=== PATIENT | female | born 1990 | race American Indian/Alaskan Native ===

== ENCOUNTER 2019-01-06 14:05 | Emergency (ER) | payer SELFPAY ==
[2019-01-06 16:19] LABS: HCG Qualitative,Urine Negative (Negative)
[2019-01-06 16:20] LABS: Bacteria,Urine 1+ /HPF (Negative); Bilirubin,Urine NEG (Negative); Blood,Urine NEG (Negative); Color,Urine Yellow (Yellow); Mucus,Urine 3+ /HPF; Protein,Urine <15 mg/dL mg/dL (Negative); Urobilinogen,Urine < 2.0 mg/dL (<2.0)
--- NOTE | 2019-01-06 16:23 | Emergency Department Report ---
ED Female HPI - General Chief complaint: Abdominal Pain Stated complaint: UTI SYMPTOMS Time Seen by Provider: 01/06/19 15:57 Source: patient Mode of arrival: Ambulatory Limitations: No Limitations - History of Present Illness Initial comments: 28-year-old -[place] female presents to the emergency room complaining of pain with urination and occasional pelvic and back pain. Patient does admit that she went [facility] was given a prescription for Macrobid but had lost it. She denies any fever or chills no nausea no vomiting. MD Complaint: dysuria Onset/Timin -: week(s) Location: suprapubic Radiation: other (back) Severity: mild Quality: aching Consistency: intermittent Improves with: none Worsens with: urination Are you Now?: No Last Menstrual Period: 12/19/18 EDC: 09/25/19 Associated Symptoms: denies other symptoms - Related Data Sexually active: Yes Previous Rx's Medication Instructions Recorded Last Taken Type Nitrofurantoin [place]/M-Cryst 100 mg PO Q12HR #14 capsule 01/06/19 Unknown Rx [Macrobid CAP] Phenazopyridine [Pyridium] 100 mg PO TID #6 tab 01/06/19 Unknown Rx Allergies Allergy/AdvReac Type Severity Reaction Status Date / Time No Known Allergies Allergy Verified 01/06/19 14:37 ED Review of Systems ROS: Stated complaint: UTI SYMPTOMS Other details as noted in HPI Comment: All other systems reviewed and negative ED Past Medical Hx - Social History Smoking Status: Never Smoker Substance Use Type: Alcohol - Medications Home Medications: Home Medications Medication Instructions Recorded Confirmed Last Taken Type Nitrofurantoin [place]/M-Cryst 100 mg PO Q12HR #14 capsule 01/06/19 Unknown Rx [Macrobid CAP] Phenazopyridine [Pyridium] 100 mg PO TID #6 tab 01/06/19 Unknown Rx ED Physical Exam - General Limitations: No Limitations General appearance: alert, in no apparent distress - Head Head exam: Present: atraumatic, normocephalic - Eye Eye exam: Present: normal appearance - ENT ENT exam: Present: mucous membranes moist - Neurological Exam Neurological exam: Present: alert, oriented X3, normal gait - Psychiatric Psychiatric exam: Present: normal affect, normal mood - Skin Skin exam: Present: warm, dry, intact, normal color. Absent: rash ED Course Vital Signs 01/06/19 14:36 Temperature 98.1 F Pulse Rate 73 Respiratory 16 Rate Blood Pressure 94/58 O2 Sat by Pulse 100 Oximetry ED Medical Decision Making - Lab Data Laboratory Tests 01/06/19 Unknown Urine Color Yellow Urine Turbidity Clear Urine pH 5.0 Ur Specific [place] 1.027 Urine Protein <15 mg/dl Urine Glucose (UA) Neg Urine Ketones Neg Urine Blood Neg Urine Nitrite Neg Ur Reducing Substances Not Reportable Urine Bilirubin Neg Urine Ictotest Not Reportable Urine Urobilinogen < 2.0 Ur Leukocyte Esterase Tr Urine WBC (Auto) 5.0 Urine RBC (Auto) 3.0 U Epithel Cells (Auto) 1.0 Urine Bacteria (Auto) 1+ Urine Mucus 3+ Urine HCG, Qual Negative - Medical Decision Making 28-year-old -[place] female presents to the emergency room complaining of pain with urination and occasional pelvic and back pain. Patient does admit that she went [facility] was given a prescription for Macrobid but had lost it. She denies any fever or chills no nausea no vomiting. Critical care attestation.: If time is entered above; I have spent that time in minutes in the direct care of this critically ill patient, excluding procedure time. ED Disposition Clinical Impression: Dysuria Disposition: DC-01 TO HOME OR SELFCARE Is pt being admited?: No Does the pt Need Aspirin: No Condition: Stable Instructions: Dysuria (ED) Prescriptions: Nitrofurantoin [place]/M-Cryst [Macrobid CAP] 100 mg PO Q12HR #14 capsule Phenazopyridine [Pyridium] 100 mg PO TID #6 tab Referrals: [facility] [Outside] - 3-5 Days [facility] [Outside] - 3-5 Days
[2019-01-06 17:26] VITALS: BP 100/61
== END 2019-01-06 17:25 | disposition home or self-care (01) ==
LOC: ED 14:05
DX: R30.0 Dysuria (principal); R10.2 Pelvic and perineal pain; M54.9 Dorsalgia, unspecified
CPT/HCPCS: 81001; 81025